=== PATIENT | male | born 1990 | race Hispanic/Latino ===

== ENCOUNTER 2025-02-08 04:09 | Emergency (ER) | payer SELFPAY | END 2025-02-08 06:32 | disposition home or self-care (01) | LOC: ERS 04:09 | DX: S01.312A Laceration without foreign body of left ear, initial encounter (principal); S01.81XA Laceration without foreign body of other part of head, initial encounter; F17.210 Nicotine dependence, cigarettes, uncomplicated; Y04.8XXA Assault by other bodily force, initial encounter | CPT/HCPCS: 70450 ==